=== PATIENT | female | born 1970 | race Caucasian/White ===

== ENCOUNTER 2016-04-16 17:42 | Inpatient (IN) | payer SELFPAY ==
[~2016-04-16] VITALS: Ht 165.1 cm; Wt 56.4 kg
[2016-04-16] VITALS (14 sets, daily range): BP systolic 110–139; BP diastolic 60–82; PULSE 92–105; RESP 12–15; TEMP 95.4–98.6; O2SAT 97–100
[2016-04-16] MEDS ORDERED: ETOMIDATE 20 MG/10 ML VIAL ONE (17:45)
[2016-04-16] MEDS ORDERED: SUCCINYLCHOLINE CHLORIDE 200 MG/10 ML VIAL ONE (17:46)
[2016-04-16] MEDS ORDERED: PROPOFOL 1000 MG/100 ML INJ 100 ML ONE (17:49)
[2016-04-16] MEDS ORDERED: SODIUM CHLORIDE 0.9% FLUSH 5 ML FLUSH IVF PRN (18:00)
[2016-04-16] MEDS ORDERED: ETOMIDATE 20 MG/10 ML VIAL IVP ONE (18:00)
[2016-04-16] MEDS ORDERED: SUCCINYLCHOLINE CHLORIDE 200 MG/10 ML VIAL IVP ONE (18:00)
[2016-04-16] MEDS ORDERED: SODIUM CHLOR 0.9% 1000 ML INJ 1,000 ML IV ONE ×2 (18:00)
--- NOTE | 2016-04-16 18:13 | PD ---
HPI Chief Complaint: Altered Mental Status Time Seen by Provider: 17:54 Travel History International Travel<30 days: No (UNABLE TO ASSESS) Contact w/Intl Traveler<30days: No (UNABLE TO ASSESS) Traveled to known affect area: No (UNABLE TO ASSESS) History of Present Illness HPI The patient was seen and examined in the presence of the nurse. This patient is brought in emergently in a state of unresponsiveness. She has GCS of 3. He is critically ill. She was found lying on the ground with 2 other people reportedly doing some illicit substances but unclear what. All 3 were found with GCS 3 lying on the ground. There is no evidence or suspicion of injury. She cannot provide any history or review of systems. [facility] Past Medical History LMP: UNK Social History Alcohol Use: Yes Tobacco Use: Yes Substance Use: Yes Allergies-Medications (Allergen,Severity, Reaction): Coded Allergies: UNOBTAINABLE (Unverified , 04/16/16) PT UNCONSCIOUS AND UNRESPONSIVE ON ARRIVAL TO EMERGENCY DEPT. Reported Meds & Prescriptions Reported Meds & Active Scripts Active Active Prescriptions or Reported Medications Unobtainable Review of Systems ROS Limitations: Clinical Condition, Unresponsive, Poor Historian Physical Exam Narrative GENERAL: Thin disheveled unresponsive well-developed patient SKIN: Warm and dry. HEAD: Atraumatic. Normocephalic. EYES: Pupils are 2.5 mm and equal and round. No scleral icterus. No injection or drainage. ENT: No nasal bleeding or discharge. Mucous membranes pink and moist. Teeth are clenched tight, unable to test gag but I doubt it is good NECK: Trachea midline. No JVD. CARDIOVASCULAR: Regular rate and rhythm. No murmur appreciated. RESPIRATORY: No accessory muscle use. Clear to auscultation. Breath sounds equal bilaterally. GASTROINTESTINAL: Abdomen soft, non-tender, nondistended. Hepatic and splenic margins not palpable. MUSCULOSKELETAL: No obvious deformities. No clubbing. No cyanosis. No edema. NEUROLOGICAL: GCS 3. No response to pain stimuli. Nonverbal. Impossible to accurately gauge motor strength or sensation given her lack of participation in the exam PSYCHIATRIC: Unable to test mood and affect; insight and judgment are nonexistent . Data Data Last Documented VS Vital Signs Date Time Temp Pulse Resp B/P Pulse Ox O2 Delivery O2 Flow Rate FiO2 04/16/16 18:25 100 14 110/60 100 Ventilator 04/16/16 17:59 15.00 04/16/16 17:50 95.4 04/16/16 17:50 50 Orders Etomidate Inj (Amidate Inj) (04/16/16 17:45) Succinylcholine Inj (Quelicin Inj) (04/16/16 17:46) Propofol 1000 Mg/100 Ml Inj (Diprivan 10 (04/16/16 17:49) Chest, Single Ap (04/16/16 17:56) Arterial Blood Gas (Abg) (04/16/16 17:56) Ecg Monitoring (04/16/16 17:56) Iv Access Insert/Monitor (04/16/16 17:56) Ng Gastric Tube Insert/Monitor (04/16/16 17:56) Urinary Catheter Insert/Apply (04/16/16 17:56) Oximetry (04/16/16 17:56) Oxygen Administration (04/16/16 17:56) Etomidate Inj (Amidate Inj) (04/16/16 18:00) Succinylcholine Inj (Quelicin Inj) (04/16/16 18:00) Sodium Chloride 0.9% Flush (Ns Flush) (04/16/16 18:00) Sodium Chlor 0.9% 1000 Ml Inj (Ns 1000 M (04/16/16 18:00) Sodium Chlor 0.9% 1000 Ml Inj (Ns 1000 M (04/16/16 18:00) Ct Brain W/O Iv Contrast(Rout) (04/16/16 ) Complete Blood Count With Diff (04/16/16 17:56) Comprehensive Metabolic Panel (04/16/16 17:56) Alcohol (Ethanol) (04/16/16 17:56) Drug Screen, Random Urine (04/16/16 17:56) Tylenol (Acetaminophen) (04/16/16 17:56) Salicylates (Aspirin) (04/16/16 17:56) Propofol 1000 Mg/100 Ml Inj (Diprivan 10 (04/16/16 18:00) ^ Infusion (04/16/16 18:00) RASS (04/16/16 18:00) Neurological Rass Scale SELENA.Q2H (04/16/16 18:00) Admit Order (Ed Use Only) (04/16/16 18:37) Labs Laboratory Tests Test 04/16/16 04/16/16 17:20 18:00 Blood Gas Puncture Site RT RADIAL Blood Gas Patient Temperature 98.6 Blood Gas HCO3 18 mmol/L Blood Gas Base Excess -8.7 mmol/L Blood Gas Oxygen Saturation 93 % Arterial Blood pH 7.20 Arterial Blood Partial 48 mmHg Pressure CO2 Arterial Blood Partial 425 mmHG Pressure O2 Arterial Blood Oxygen Content 17.9 Vol % Arterial Blood 5.0 % Carboxyhemoglobin Arterial Blood Methemoglobin 1.7 % Blood Gas Hemoglobin 12.9 G/DL Oxygen Delivery Device VENTILATOR Blood Gas Ventilator Setting PRVC/AC Blood Gas Inspired Oxygen 100 % Salicylates Level LESS THAN 1.7 MG/DL MDM Medical Decision Making Medical Screen Exam Complete: Yes Emergency Medical Condition: Yes Medical Record Reviewed: Yes Differential Diagnosis Overdose, intracranial hemorrhage, postictal state Narrative Course Patient is here as a Brooke Daniels. Unable to check for prior medical records. This patient is critically ill. INTUBATION: The patient was put in optimal position for the procedure. Rapid sequence intubation was initiated by me using 20 milligrams of etomidate IV and 80 milligrams of succinylcholine IV. The patient was intubated with a 80 cuffed endotracheal tube. Tube placement was confirmed by visualization of the tube and balloon passing through the cords, capnometry and subsequent chest x- ray. Breath sounds were equal and well aerated bilaterally postintubation. No breath sounds over stomach. Patient tolerated procedure well. After intubation her saturation is 100% on the ventilator. 3 IVs replaced I gave her 2 L normal saline IV bolus Initially hypotensive on scene at 80/50 but midway through fluid resuscitation her blood pressure now 115 systolic Given Dawkins and a G-tube and soft restraints Will initiate Diprivan drip when needed I reviewed her chest x-ray which shows good placement of endotracheal tube and OG tube with clear lungs Rest of the workup was ordered including urine and labs and aspirin and Tylenol levels Aspirin level is normal Rest of the workup will be checked I reviewed with guidance director Dr. Nieves who has already examined the patient will admit to intensive care Critical Care Narrative Aggregate critical care time was 80 minutes. Time to perform other separately billable procedures was not included in the critical care time. My time did not include minutes spent treating any other patients simultaneously or on activities that did not directly contribute to the patient's treatment. The services I provided to this patient were to treat and/or prevent clinically significant deterioration that could result in: Aspiration, loss of airway, hypoxemic brain injury, cardiopulmonary arrest I provided critical care services requiring my management, as noted below: Chart data review, documentation time, medication orders and management, vital sign assessments/reviewing monitor data, ordering and reviewing lab tests, ordering and interpreting/reviewing x-rays and diagnostic studies, care of the patient and discussion of the patient with the admitting physicians. Diagnosis Primary Impression: Unresponsive state Additional Impression: Overdose Qualified Code: T50.904A - Overdose, undetermined intent, initial encounter Admitting Information Admitting Physician Requests: Admit Scripts Unable to Obtain Active Prescriptions or Reported Meds Amari De La Cruz MD Apr 16, 2016 18:13
[2016-04-16 18:33] LABS: BLOOD GAS BASE EXCESS -8.7 mmol/L (-2-2); BLOOD GAS HCO3 18 mmol/L (22-26); BLOOD GAS METHEMOGLOBIN 1.7 % (0-2); BLOOD GAS O2 HGB SATURATION 93 % (90-100); BLOOD GAS OXYGEN CONTENT 17.9 Vol % (12.0-20.0); BLOOD GAS PCO2 48 mmHg (38-42); BLOOD GAS PO2 425 mmHG (61-120); BLOOD GAS TOTAL HGB 12.9 G/DL (12.0-16.0); CRITICAL VALUE YES; OXYGEN DEVICE VENTILATOR; TEMP CORR TO 98.6
[2016-04-16 18:34] LABS: DRAW SITE RT RADIAL; FIO2 100 %; NUMBER OF ARTERIAL PUNCTURES 1; STAT YES; ULNAR PULSE PRESENT; VENT SETTINGS PRVC/AC
[2016-04-16] MEDS: PROPOFOL 1000 MG/100 ML INJ 100 ML IV SCH (18:41)
[2016-04-16 18:43] LABS: ANION GAP 9 MEQ/L (5-15)
--- NOTE | 2016-04-16 18:44 | RADRPT ---
EXAM DATE/TIME: 04/16/2016 18:37 [facility] COMPARISON: No previous studies available for comparison. INDICATIONS : Post intubation. MEDICAL HISTORY : None. SURGICAL HISTORY : None. ENCOUNTER: Initial ACUITY: 1 day PAIN SCORE: Non-responsive. LOCATION: Bilateral chest FINDINGS: Endotracheal tube, nasogastric tube are both present in good position. lungs are symmetrically aerate d and grossly clear without definite evidence of hemothorax or pneumothorax. For slight rotation, car diomediastinal contour is satisfactory. Thoracic skeleton is grossly intact. CONCLUSION: Satisfactory chest appearance Steve Westbrook MD on April 16, 2016 at 18:41 Board Certified Radiologist. This report was verified electronically.
[2016-04-16 18:46] LABS: ALKALINE PHOSPHATASE 74 U/L (45-117); ALT (GPT) 42 U/L (10-53); AST (GOT) 75 U/L (15-37); BICARBONATE 19.3 MEQ/L (21.0-32.0); BLOOD UREA NITROGEN 8 MG/DL (7-18); CHLORIDE 110 MEQ/L (98-107); GLOMERULAR FILTRATION RATE 88 ML/MIN (>89); POTASSIUM 6.5 MEQ/L (3.5-5.1); SODIUM (NA) 138 MEQ/L (136-145); TOTAL BILIRUBIN ADULT 0.2 MG/DL (0.2-1.0)
[2016-04-16 18:50] LABS: ACETAMINOPHEN LESS THAN 2.0 MCG/ML (10.0-30.0)
[2016-04-16] MEDS ORDERED: DEXTROSE 10% INJ 1,000 ML IV SCH (19:03)
[2016-04-16] MEDS ORDERED: SODIUM CHLORIDE 0.9% FLUSH 5 ML FLUSH IV FLUSH PRN (19:15)
[2016-04-16] MEDS ORDERED: MAGNESIUM SULFATE INJ 2 GM in SODIUM CHLORIDE 0.9% INJ 96 ML IV PRN (19:15)
[2016-04-16] MEDS ORDERED: POTASSIUM PHOSPHATE MONOBASIC 500 MG TAB PO/TUBE PRN (19:15)
[2016-04-16] MEDS ORDERED: SODIUM PHOSPHATE INJ 30 MMOL in SODIUM CHLOR 0.9% 250 ML INJ 240 ML IV PRN (19:15)
[2016-04-16] MEDS ORDERED: DEXTROSE 50% IN WATER 50 ML VIAL(D50) IV PUSH PRN (19:15)
[2016-04-16] MEDS ORDERED: DEXTROSE 50% IN WATER 50 ML SYRINGE IV ONE (19:15)
[2016-04-16] MEDS ORDERED: INSULIN HUMAN REGULAR 1,000 UNITS/10 ML VIAL IVP ONE (19:15)
[2016-04-16] MEDS ORDERED: POTASSIUM CHLOR 40 MEQ PREMIX 100 ML IV PRN ×2 (19:15)
[2016-04-16] MEDS ORDERED: POTASSIUM CHLOR 20 MEQ PREMIX 100 ML IV PRN ×2 (19:15)
[2016-04-16] MEDS ORDERED: POTASSIUM PHOSPHATE INJ 30 MMOL in SODIUM CHLOR 0.9% 250 ML INJ 250 ML IV PRN (19:15)
[2016-04-16] MEDS ORDERED: POTASSIUM CL 40 MEQ/30 ML LIQ UDC PO/TUBE PRN ×2 (19:15)
[2016-04-16] MEDS ORDERED: MISCELLANEOUS NURSING INFORMATION XX SCH (19:15)
[2016-04-16] MEDS ORDERED: RESP: ALBUTEROL 2.5 MG/IPRATROPIUM 0.5 MG NEB (PRN) INH (19:15)
[2016-04-16] MEDS ORDERED: CALCIUM CHLORIDE 10% SOLN 1 GRAM/10 ML SYR IV PUSH ONE (19:15)
[2016-04-16] MEDS ORDERED: PROPOFOL 1000 MG/100 ML INJ 100 ML IV SCH (19:15)
[2016-04-16] MEDS ORDERED: SODIUM POLYSTYRENE SULFONATE SUSP 15 GM/60 ML CUP PO ONE (19:15)
[2016-04-16] MEDS ORDERED: POTASSIUM PHOSPHATE MONOBASIC 500 MG TAB PO PRN (19:15)
[2016-04-16] MEDS ORDERED: MAGNESIUM OXIDE 400 MG TAB PO PRN (19:15)
[2016-04-16] MEDS ORDERED: MAGNESIUM SULFATE INJ 4 GM in SODIUM CHLORIDE 0.9% INJ 92 ML IV PRN (19:15)
[2016-04-16] MEDS ORDERED: CHLORHEXIDINE GLUCONATE 2 % 1 PACK (2 CLOTHS) TOP PRN (19:15)
[2016-04-16 19:48] LABS: AUTOMATED NEUTROPHIL # 4.9 TH/MM3 (1.8-7.7); BASOPHIL % 0.7 % (0.0-2.0); HEMATOCRIT 43.1 % (35.0-46.0); LYMPH % 11.1 % (9.0-44.0); LYMPHOCYTE # 0.7 TH/MM3 (1.0-4.8); MEAN CELL VOLUME 94.6 FL (80.0-100.0); MEAN CORPUSCULAR HEMOGLOBIN 31.2 PG (27.0-34.0); MONO % 5.8 % (0.0-8.0); NEUT % 82.4 % (16.0-70.0); PLATELET COUNT 133 TH/MM3 (150-450); RED BLOOD COUNT 4.55 MIL/MM3 (4.00-5.30); RED CELL DISTRIBUTION WIDTH 17.7 % (11.6-17.2); WHITE BLOOD COUNT 5.9 TH/MM3 (4.0-11.0)
[2016-04-16 19:51] LABS: HEMO FLAGS DIFF FINAL
--- NOTE | 2016-04-16 19:51 | HHI.HP ---
[facility] Service Critical Care Medicine Primary Care Physician Unknown Admission Diagnosis unresponsive, OD Diagnosis: Chief Complaint: altered mental status Travel History International Travel<30 Days: No (UNABLE TO ASSESS) Contact w/Intl Traveler <30 Da: No (UNABLE TO ASSESS) Traveled to Known Affected Are: No (UNABLE TO ASSESS) History of Present Illness This is a young female who was found unresponsive after reportedly smoking K2. EMS brought the patient in with a GCS of 3, with active bag valve mask support his respirations. There is visible signs of emesis and probable aspiration at the scene. Patient was emergently intubated in the emergency department. Nothing else is known about the patient, and he is unable to tell us any past medical history given his current clinical status. Critical care medicine was consulted to evaluate and manage his altered mental status and presumed toxic encephalopathy, drug overdose. Review of Systems ROS Limitations: Clinical Condition, Intoxication, Intubated, Altered Mental Status, Unresponsive Past Family Social History Allergies: Coded Allergies: UNOBTAINABLE (Unverified , 04/16/16) PT UNCONSCIOUS AND UNRESPONSIVE ON ARRIVAL TO EMERGENCY DEPT. Past Medical History Unknown secondary to clinical condition of patient Past Surgical History Unknown secondary to clinical condition of patient Reported Medications Unknown secondary to clinical condition of patient Active Ordered Medications See MAR Family History Unknown secondary to clinical condition of patient Social History Unknown secondary to clinical condition of patient Physical Exam Vital Signs Vital Signs Date Time Temp Pulse Resp B/P Pulse Ox O2 Delivery O2 Flow Rate FiO2 04/16/16 19:07 40 04/16/16 18:45 95.4 04/16/16 18:40 100 14 129/73 100 Ventilator 04/16/16 18:25 100 14 110/60 100 Ventilator 04/16/16 18:00 102 14 122/72 100 Ventilator 04/16/16 17:59 98 Nasal Cannula 15.00 04/16/16 17:50 95.4 96 12 119/82 100 Non-Rebreather 04/16/16 17:50 97 12 98 Non-Rebreather 04/16/16 17:50 50 04/16/16 17:42 98 Non-Rebreather 04/16/16 17:42 95.4 96 12 119/82 97 04/16/16 15:50 100 50 Physical Exam GENERAL: Middle-aged female, lying in bed, intubated, sedated. Critically ill HEENT: Normocephalic. Atraumatic. Pupils pinpoint, equal, round, conjugate. Mucous members are dry. NECK: Trachea is midline. No JVD. CHEST: Equal chest rise. Clear to auscultation. Intubated. CARDIOVASCULAR: Normal rate, regular rhythm. S1 and S2 without appreciable murmurs. ABDOMEN: Soft, nontender, nondistended. No guarding. MUSCULOSKELETAL: No peripheral edema. Distal pulses 2+. NEUROLOGICAL: RASS -5. GCS 3. Laboratory Laboratory Tests Test 04/16/16 04/16/16 17:20 18:00 Blood Gas Puncture Site RT RADIAL Blood Gas Patient Temperature 98.6 Blood Gas HCO3 18 Blood Gas Base Excess -8.7 Blood Gas Oxygen Saturation 93 Arterial Blood pH 7.20 Arterial Blood Partial 48 Pressure CO2 Arterial Blood Partial 425 Pressure O2 Arterial Blood Oxygen Content 17.9 Arterial Blood 5.0 Carboxyhemoglobin Arterial Blood Methemoglobin 1.7 Blood Gas Hemoglobin 12.9 Oxygen Delivery Device VENTILATOR Blood Gas Ventilator Setting PRVC/AC Blood Gas Inspired Oxygen 100 Sodium Level 138 Potassium Level 6.5 Chloride Level 110 Carbon Dioxide Level 19.3 Anion Gap 9 Blood Urea Nitrogen 8 Creatinine 0.59 Estimat Glomerular Filtration 88 Rate Random Glucose 99 Calcium Level 7.6 Total Bilirubin 0.2 Aspartate Amino Transf 75 (AST/SGOT) Alanine Aminotransferase 42 (ALT/SGPT) Alkaline Phosphatase 74 Total Protein 7.8 Albumin 3.2 Salicylates Level LESS THAN 1.7 Acetaminophen Level LESS THAN 2.0 Ethyl Alcohol Level 266 Result Diagram: 04/16/16 1800 Assessment and Plan Assessment and Plan Assessment: This is a young female who was brought in by EMS in respiratory arrest with active [id number] reportedly secondary to an overdose of K2. She is intubated and very critically ill. Plan by systems: Neurologic: Toxic encephalopathy Alcohol abuse K2 abuse RASS goal -2 Propofol for goal RASS We'll follow-up urine drug screen Follow-up Tylenol level, aspirin level, ethanol level 500 mg IV daily Daily multivitamin Respiratory: Acute hypoxic and hypercarbic respiratory failure Intubated and sedated. Vent bundle Head of bed 30 Wean FiO2 for goal SPO2 greater than 92% Low tidal volume ventilation targeting 6 cc/kg ideal body weight Does not SBT criteria today given altered mental status Stat ABG and a.m. ABG A.m. chest x-ray Nebs every 6 and every 2 when necessary Cardiovascular: Sinus tachycardia Possible hypovolemic shock Continue telemetry Stat EKG Stat lactic acid and serial lactate at midnight Renal: Possible rhabdomyolysis Place Dawkins for accurate I's and O's. Every hour urine outputs -- Strict I/Os Stat CK and follow-up CK at midnight FEN/GI: Acute protein calorie malnutritionmild Acute Intravascular hypovolemia Metabolic acidosis Severe life-threatening hyperkalemia Nothing by mouth ICU electric protocol 2 L normal saline IV bolus Maintenance fluids: Lactated Ringer's at 200 cc an hour D10 at 30 cc an hour for dextrose source Stat BMP, LFTs Daily BMP --insulin 10 units iv, d50 1/2 amp, calcium chloride, kayexalate for serum K 6.5. Heme/ID: Leukocytosis Probable aspiration pneumonitis Stat CBC, coags Daily CBC No infectious etiology suspected this time. If the patient spikes a fever after 48 hours we will cover her with antibiotics for presumed aspiration pneumonia. Endocrine: Hyperglycemia of critical illness -- SSI, medium scale, every 6 hours D10 at 30 cc an hour to prevent hypoglycemia. Prophylaxis: GI Prophylaxis Protonix 40 g IV every 24 hours: Anticipated mechanical ventilation of greater than 48 hours duration DVT Prophylaxis -- SCDs Subcutaneous heparin 5000 every 8 Lines: Peripheral IVs. We will maintain 2 large for peripheral IVs at all time. Dawkins Dispo: admit the patient to the ICU. She is very critically ill this time. This patient remains critically ill with one or more organ systems which are or may become a threat to life. I have spent in excess of 35 minutes discontinuously in the care and management of this patient. This time is exclusive of procedures, and includes, but is not limited to, evaluation of the patient, review of the medical record, discussions with family, consultants, nursing staff, or respiratory therapy, and documentation in the medical record. Code Status Full code Richy Wilde MD Apr 16, 2016 19:51
[2016-04-16 19:54] LABS: BACTERIA, URINE MANY /hpf; BLOOD, URINE NEG (NEG); COMMENT (UR) CATH-CULTURE IND; CULTURE IF INDICATED CATH CULTURE IND; GLUCOSE,URINE NEG (NEG); KETONE, URINE NEG (NEG); NITRITE,URINE POS (NEG); URINE COLOR YELLOW (YELLW/STRAW)
[2016-04-16] MEDS ORDERED: ONDANSETRON HCL 4 MG/2 ML VIAL IV PRN (20:00)
[2016-04-16 20:26] LABS: AMPHETAMINE, URINE NEG (NEG); BARBITURATES, URINE NEG (NEG); COCAINE, URINE NEG (NEG)
[2016-04-16] MEDS: LACTATED RINGER'S 1000 ML INJ 1,000 ML IV SCH (20:26)
[2016-04-16] MEDS: RESP: ALBUTEROL 2.5 MG/IPRATROPIUM 0.5 MG NEB (SCH) INH (20:42)
[2016-04-16] MEDS: SODIUM CHLORIDE 0.9% FLUSH 5 ML FLUSH IV FLUSH SCH (21:00)
[2016-04-16] MEDS: DOCUSATE SODIUM 50 MG/SENNA 8.6 MG TAB PO SCH (21:00)
[2016-04-16] MEDS: POLYETHYLENE GLYCOL 17 GM PKG PO SCH (21:00)
[2016-04-16 23:25] LABS: BLOOD GAS BASE EXCESS -5.8 mmol/L (-2-2); BLOOD GAS CARBOXYHEMOGLOBIN 3.5 % (0-4); BLOOD GAS HCO3 19 mmol/L (22-26); BLOOD GAS METHEMOGLOBIN 2.1 % (0-2); BLOOD GAS O2 HGB SATURATION 93 % (90-100); BLOOD GAS OXYGEN CONTENT 16.4 Vol % (12.0-20.0); BLOOD GAS PCO2 38 mmHg (38-42); BLOOD GAS PO2 116 mmHG (61-120); BLOOD GAS TOTAL HGB 12.4 G/DL (12.0-16.0); CRITICAL VALUE NO; DRAW SITE RT FEMORAL; FIO2 35 %; NUMBER OF ARTERIAL PUNCTURES 1; OXYGEN DEVICE VENTILATOR; STAT NO; TEMP CORR TO 98.6; VENT SETTINGS AC15/500 5 PEEP
[2016-04-16] MEDS: INSULIN NovoLIN REGULAR SUPPLEMENTAL SCALE SQ SCH (23:47)
[2016-04-17] VITALS (16 sets, daily range): BP systolic 103–151; BP diastolic 56–94; PULSE 72–110; RESP 14–24; TEMP 97.7–99; O2SAT 95–100
--- NOTE | 2016-04-17 01:18 | RADRPT ---
EXAM DATE/TIME: 04/17/2016 00:48 [facility] COMPARISON: No previous studies available for comparison. INDICATIONS : Found unresponsive. RADIATION DOSE: 56.35 CTDIvol (mGy) MEDICAL HISTORY : Non-responsive. SURGICAL HISTORY : Non-responsive. ENCOUNTER: Initial ACUITY: 1 day PAIN SCALE: Non-responsive LOCATION: cranial TECHNIQUE: Multiple contiguous axial images were obtained of the head. Using automated exposure control and adj ustment of the mA and/or kV according to patient size, radiation dose was kept as low as reasonably a chievable to obtain optimal diagnostic quality images. FINDINGS: CEREBRUM: The ventricles are normal for age. No evidence of midline shift, mass lesion, hemorrhage or acute in farction. No extra-axial fluid collections are seen. POSTERIOR FOSSA: The cerebellum and brainstem are intact. The 4th ventricle is midline. The cerebellopontine angle i s unremarkable. EXTRACRANIAL: The visualized portion of the orbits is intact. Mucosal thickening is seen involving ethmoid air cell s and maxillary sinuses bilaterally. No air-fluid levels. SKULL: The calvaria is intact. No evidence of skull fracture. CONCLUSION: 1. No acute intracranial abnormality. 2. Chronic paranasal sinus disease. Nilay Nieves Jr., MD on April 17, 2016 at 1:15 Board Certified Radiologist. This report was verified electronically.
[2016-04-17] MEDS: LACTATED RINGER'S 1000 ML INJ 1,000 ML IV SCH ×3 (01:33→12:10)
[2016-04-17] MEDS: PROPOFOL 1000 MG/100 ML INJ 100 ML IV SCH (01:33)
[2016-04-17 02:13] LABS: BICARBONATE 21.2 MEQ/L (21.0-32.0); POTASSIUM 4.4 MEQ/L (3.5-5.1)
[2016-04-17] MEDS: CHLORHEXIDINE GLUCONATE 2 % 1 PACK (2 CLOTHS) TOP SCH ×2 (03:47→21:49)
--- NOTE | 2016-04-17 04:40 | RADRPT ---
EXAM DATE/TIME: 04/17/2016 03:15 [facility] COMPARISON: CHEST SINGLE AP, April 16, 2016, 18:37. INDICATIONS : Shortness of breath. MEDICAL HISTORY : Non-responsive SURGICAL HISTORY : Non-responsive ENCOUNTER: Subsequent ACUITY: 2 days PAIN SCORE: Non-responsive. LOCATION: Bilateral chest FINDINGS: A single view of the chest demonstrates the lungs to be symmetrically aerated without evidence of mas s, infiltrate or effusion. The cardiomediastinal contours are unremarkable. Osseous structures are intact. Tip of the endotracheal tube 2 cm proximal to lindsey. Nasogastric tube courses off the inferi or margin of the film. CONCLUSION: Clear lungs. Nilay Nieves Jr., MD on April 17, 2016 at 4:38 Board Certified Radiologist. This report was verified electronically.
[2016-04-17] MEDS: RESP: ALBUTEROL 2.5 MG/IPRATROPIUM 0.5 MG NEB (SCH) INH ×2 (05:06→07:26)
[2016-04-17] MEDS: INSULIN NovoLIN REGULAR SUPPLEMENTAL SCALE SQ SCH ×4 (05:26→21:00)
[2016-04-17] MEDS: HEPARIN SODIUM - SQ 10,000 UNITS/ML VIAL SQ SCH ×3 (05:27→21:48)
[2016-04-17 05:33] LABS: HEMATOCRIT 42.6 % (35.0-46.0); PLATELET COUNT 110 TH/MM3 (150-450); RED BLOOD COUNT 4.53 MIL/MM3 (4.00-5.30); RED CELL DISTRIBUTION WIDTH 17.4 % (11.6-17.2); WHITE BLOOD COUNT 8.7 TH/MM3 (4.0-11.0)
[2016-04-17 05:39] LABS: REVIEW FLAG FINAL
[2016-04-17] MEDS ORDERED: HALOPERIDOL LACTATE 5 MG/ML AMP IV PRN (07:45)
[2016-04-17] MEDS ORDERED: DEXMEDETOMIDINE INJ 50 ML IV SCH (08:00)
[2016-04-17] MEDS: QUEtiapine FUMARATE 100 MG TAB PO SCH ×2 (08:35→13:12)
[2016-04-17] MEDS: CHLORHEXIDINE 0.12% (ORAL KIT) 15 ML CUP MT SCH ×2 (08:36→20:00)
[2016-04-17] MEDS ORDERED: PANTOPRAZOLE SODIUM 40 MG VIAL IV SCH (09:00)
[2016-04-17] MEDS: SODIUM CHLORIDE 0.9% FLUSH 5 ML FLUSH IV FLUSH SCH ×2 (09:00→21:48)
[2016-04-17] MEDS: POLYETHYLENE GLYCOL 17 GM PKG PO SCH ×2 (09:52→21:00)
[2016-04-17] MEDS: DOCUSATE SODIUM 50 MG/SENNA 8.6 MG TAB PO SCH ×2 (09:52→21:49)
--- NOTE | 2016-04-17 10:42 | HHI.CCPN ---
Subjective Remarks/Hospital Course Hospital Course: This is a young female who was found unresponsive after reportedly smoking K2. EMS brought the patient in with a GCS of 3, with active bag valve mask support his respirations. There is visible signs of emesis and probable aspiration at the scene. Patient was emergently intubated in the emergency department. Nothing else is known about the patient, and he is unable to tell us any past medical history given his current clinical status. Critical care medicine was consulted to evaluate and manage his altered mental status and presumed toxic encephalopathy, drug overdose. Subjective: 04/17: somnolent this AM on propofol sedation. serum K improved overnight with kayexalate, insulin/d50, calcium. uop is adequate. Objective Vital Signs Date Time Temp Pulse Resp B/P Pulse Ox O2 Delivery O2 Flow Rate FiO2 04/17/16 10:15 100 Nasal Cannula 2 04/17/16 07:40 35 04/17/16 06:00 87 04/17/16 04:00 98.4 15 116/71 Intake and Output 04/16/16 04/16/16 04/17/16 08:00 16:00 00:00 Output Total 800 ml Balance -800 ml Result Diagram: 04/17/16 0340 04/17/16 0123 Other Results Laboratory Tests Test 04/16/16 04/16/16 17:20 22:00 Blood Gas Puncture Site RT RADIAL RT FEMORAL Blood Gas Patient Temperature 98.6 98.6 Blood Gas HCO3 18 mmol/L 19 mmol/L (22-26) (22-26) Blood Gas Base Excess -8.7 mmol/L -5.8 mmol/L (-2-2) (-2-2) Blood Gas Oxygen Saturation 93 % (90-100) 93 % (90-100) Arterial Blood pH 7.20 7.33 (7.380-7.420) (7.380-7.420) Arterial Blood Partial 48 mmHg (38-42) 38 mmHg (38-42) Pressure CO2 Arterial Blood Partial 425 mmHG 116 mmHG Pressure O2 (61-120) (61-120) Arterial Blood Oxygen Content 17.9 Vol % 16.4 Vol % (12.0-20.0) (12.0-20.0) Arterial Blood 5.0 % (0-4) 3.5 % (0-4) Carboxyhemoglobin Arterial Blood Methemoglobin 1.7 % (0-2) 2.1 % (0-2) Blood Gas Hemoglobin 12.9 G/DL 12.4 G/DL (12.0-16.0) (12.0-16.0) Oxygen Delivery Device VENTILATOR VENTILATOR Blood Gas Ventilator Setting [facility]/ AC15/500 5 PEEP Blood Gas Inspired Oxygen 100 % 35 % Objective Remarks GENERAL: Middle-aged female, lying in bed, intubated, sedated. HEENT: Normocephalic. Atraumatic. Pupils pinpoint, equal, round, conjugate. Mucous members moist. NECK: Trachea is midline. No JVD. CHEST: Equal chest rise. Clear to auscultation. Intubated. CARDIOVASCULAR: Normal rate, regular rhythm. S1 and S2 without appreciable murmurs. ABDOMEN: Soft, nontender, nondistended. No guarding. MUSCULOSKELETAL: No peripheral edema. Distal pulses 2+. NEUROLOGICAL: RASS -3. briskly purposeful. does not follow commands. A/P Assessment and Plan Assessment: This is a young female who was brought in by EMS in respiratory arrest with active [id number] reportedly secondary to an overdose of K2. She remains intubated, although improving. we need her mental status to improve to move towards extubation. Plan by systems: Neurologic: Toxic encephalopathy Alcohol abuse K2 abuse RASS goal 0 will transition from propofol to precedex for our RASS goal and attempt to wean sedation to move towards extubation. Thiamine 100 mg IV daily Daily multivitamin Respiratory: Acute hypoxic and hypercarbic respiratory failure- resolving. Intubated and sedated. Vent bundle Head of bed 30 Wean FiO2 for goal SPO2 greater than 92% --SBT today. if she passes, will move forward with extubation. Nebs every 6 and every 2 when necessary Cardiovascular: Sinus tachycardia- resolved. Possible hypovolemic shock- resolved. Continue telemetry lactate stabilized. Renal: Possible rhabdomyolysis-resolved. continue martin this morning, if she continues to improve, we will move towards martin catheter removal. Every hour urine outputs -- Strict I/Os FEN/GI: Acute protein calorie malnutritionmild Acute Intravascular hypovolemia- resolving. Metabolic acidosis- resolved. Severe life-threatening hyperkalemia- resolved. Nothing by mouth --If she extubates today, we will pursue nursing bedside swallow evaluation and advance her diet. ICU electric protocol Maintenance fluids: Lactated Ringer's at 200 cc an hour Daily BMP Heme/ID: Probable aspiration pneumonitis Daily CBC No infectious etiology suspected this time. If the patient spikes a fever after 48 hours we will cover her with antibiotics for presumed aspiration pneumonia. Endocrine: Hyperglycemia of critical illness -- SSI, medium scale, every 6 hours D10 at 30 cc an hour to prevent hypoglycemia. Prophylaxis: GI Prophylaxis Protonix 40 g IV every 24 hours: Anticipated mechanical ventilation of greater than 48 hours duration. If she extubates today, we will discontinue this. DVT Prophylaxis -- SCDs Subcutaneous heparin 5000 every 8 Lines: Peripheral IVs. Martin Dispo: remain in the ICU. If she extubates today, will consider transfer out of the ICU late today or early tomorrow. Richy Wilde MD Apr 17, 2016 10:42
[2016-04-17] MEDS ORDERED: ACETAMINOPHEN 325 MG TAB PO PRN (10:45)
[2016-04-17] MEDS ORDERED: HYDROmorphone HCL PF 1 MG/ML VIAL IV PUSH PRN (10:45)
--- NOTE | 2016-04-17 11:27 | EKG ---
Date Performed: 04/16/2016 Time Performed: 22:01:02 PTAGE: 89 years EKG: Sinus rhythm NORMAL ECG NO PREVIOUS TRACING DOCTOR: Ivan Keenan Interpretating Date/Time 04/17/2016 11:25:16
[2016-04-17] MEDS ORDERED: DEXTROSE 50% IN WATER 50 ML VIAL(D50) IV PUSH PRN (15:15)
[2016-04-17] MEDS ORDERED: NICOTINE 14 MG/24 HR PATCH TD SCH (23:00)
[2016-04-18] VITALS: BP 108/60; PULSE 75; RESP 20; TEMP 99.2; O2SAT 95
[2016-04-18] MEDS: INSULIN NovoLIN REGULAR SUPPLEMENTAL SCALE SQ SCH ×5 (03:00→21:00)
[2016-04-18 04:00] VITALS: BP 134/71; PULSE 72; RESP 20; TEMP 98.3; O2SAT 95
[2016-04-18 04:01] LABS: HEMATOCRIT 36.3 % (35.0-46.0); MEAN CELL VOLUME 92.4 FL (80.0-100.0); MEAN CORPUSCULAR HEMOGLOBIN 30.7 PG (27.0-34.0); MEAN CORPUSCULAR HGB CONC 33.2 % (32.0-36.0); PLATELET COUNT 108 TH/MM3 (150-450); RED BLOOD COUNT 3.93 MIL/MM3 (4.00-5.30); RED CELL DISTRIBUTION WIDTH 16.7 % (11.6-17.2); REVIEW FLAG FINAL; WHITE BLOOD COUNT 6.7 TH/MM3 (4.0-11.0)
[2016-04-18 04:48] LABS: BICARBONATE 24.9 MEQ/L (21.0-32.0); POTASSIUM 3.6 MEQ/L (3.5-5.1)
[2016-04-18] MEDS: HEPARIN SODIUM - SQ 10,000 UNITS/ML VIAL SQ SCH ×3 (06:17→21:24)
[2016-04-18 08:00] VITALS: BP 143/85; PULSE 67; PULSE 77; RESP 18; TEMP 98.1; O2SAT 94
[2016-04-18] MEDS: POLYETHYLENE GLYCOL 17 GM PKG PO SCH ×2 (08:57→21:00)
[2016-04-18] MEDS: SODIUM CHLORIDE 0.9% FLUSH 5 ML FLUSH IV FLUSH SCH ×2 (08:57→21:00)
[2016-04-18] MEDS: DOCUSATE SODIUM 50 MG/SENNA 8.6 MG TAB PO SCH ×2 (08:57→21:00)
[2016-04-18 12:00] VITALS: BP 106/71; PULSE 82; PULSE 94; RESP 18; TEMP 98.5; O2SAT 97
[2016-04-18 16:00] VITALS: BP 126/76; PULSE 74; PULSE 99; RESP 19; TEMP 98.3; O2SAT 93
--- NOTE | 2016-04-18 19:17 | HHI.PR ---
Subjective Remarks Patient states that she has no complaints chest pain shortness of breath. She has gotten up and ambulated. She denies any active suicidal ideations. She admits to history of drug abuse. She understands her risk and consequences of continued drug abuse. She states that she wants to be released and discharged home today. Objective Vitals Vital Signs Date Time Temp Pulse Resp B/P Pulse Ox O2 Delivery O2 Flow Rate FiO2 04/18/16 16:00 74 04/18/16 12:00 82 04/18/16 12:00 98.5 94 18 106/71 97 04/18/16 08:00 98.1 67 18 143/85 94 04/18/16 08:00 77 04/18/16 04:00 98.3 72 20 134/71 95 04/18/16 04:00 72 04/18/16 00:00 99.2 75 20 108/60 95 04/18/16 00:00 75 04/17/16 20:15 97 21 04/17/16 20:00 79 04/17/16 20:00 98.7 79 18 103/56 98 I/O 04/17/16 04/17/16 04/17/16 04/18/16 04/18/16 04/18/16 07:00 15:00 23:00 07:00 15:00 23:00 Intake Total 2205 ml 1843 ml 420 ml 100 ml 0 ml Output Total 250 ml 600 ml 400 ml 600 ml Balance 1955 ml 1243 ml 20 ml -500 ml 0 ml Intake Oral 420 ml 420 ml 100 ml IV Total 2205 ml 1423 ml 0 ml Output Urine Total 250 ml 600 ml 400 ml 600 ml Stool Total 0 ml # Voids 2 2 3 # Bowel Movements 1 1 Result Diagram: 04/18/16 0332 04/18/16 0332 Other Results Microbiology Date/Time Procedure Status Source Growth 04/16/16 20:38 Aerobic Blood Culture - Preliminary Resulted Blood Peripheral NO GROWTH IN 2 DAYS 04/16/16 20:38 Anaerobic Blood Culture - Preliminary Resulted Blood Peripheral NO GROWTH IN 2 DAYS 04/16/16 19:30 Urine Culture - Final Complete Urine Catheterized Urine Klebsiella Pneumoniae Objective Remarks GENERAL: This is a well-nourished, well-developed patient, in no apparent distress. CARDIOVASCULAR: Regular rate and rhythm RESPIRATORY: Clear to auscultation. Breath sounds equal bilaterally. No wheezes , rales, or rhonchi. GASTROINTESTINAL: Abdomen soft, non-tender, nondistended. Normal active bowel sounds MUSCULOSKELETAL: Extremities without clubbing, cyanosis, or edema. NEURO: Alert & Oriented x4 to person, place, time, situation. Moves all ext x4 A/P Problem List: (1) Toxic encephalopathy ICD Code: G92 Status: Acute (2) UTI due to Klebsiella species ICD Code: N39.0 Status: Acute (3) Overdose ICD Code: T50.901A Status: Acute Assessment and Plan Toxic encephalopathy due to Alcohol abuse and K2 abuse -now mental status has improved. Thiamine 100 mg IV daily and when changed to by mouth Daily multivitamin Acute hypoxic and hypercarbic respiratory failure- resolved and now extubated. Nebs every 6 and every 2 when necessary Sinus tachycardia- resolved. Severe life-threatening hyperkalemia- resolved. Probable aspiration pneumonitis Daily CBC, patient seems stable for respiratory status. Patient will be given prescription for Cipro to cover for both UTI and possible aspiration pneumonitis Urinary tract infection, klebsiellacontinue Cipro. GI Prophylaxis Protonix 40 g IV every 24 hours, which we will discontinue today as patient has been extubated. DVT Prophylaxis -- SCDs Subcutaneous heparin 5000 every 8 Lines: Peripheral IVs. [facility] discontinued Discharge Planning Discharge patient home today. Problem Qualifiers (1) Overdose: Qualified Code: T50.904A - Overdose, undetermined intent, initial encounter Dora Hilario MD Apr 18, 2016 19:17
[2016-04-18 19:35] VITALS: O2SAT 95
--- NOTE | 2016-04-18 19:54 | HHI.DCPOC ---
Discharge Care Plan Diagnosis: (1) Overdose (2) UTI due to Klebsiella species Goals to Promote Your Health * To prevent worsening of your condition and complications * To maintain your health at the optimal level Directions to Meet Your Goals Take your medications as prescribed Follow your dietary instruction Follow activity as directed Keep your appointments as scheduled Take your immunizations and boosters as scheduled If your symptoms worsen call your PCP, if no PCP go to Urgent Care Center or Emergency Room Smoking is Dangerous to Your Health. Avoid second hand smoke Call the 24-hour hour crisis hotline for domestic abuse at Dora Hilario MD Apr 18, 2016 19:54
[2016-04-18] MEDS ORDERED: CIPR500T2 PO (19:56)
[2016-04-18] MEDS: CHLORHEXIDINE 0.12% (ORAL KIT) 15 ML CUP MT SCH (20:00)
--- NOTE | 2016-04-18 20:01 | HHI.DS ---
Discharge Summary Admission Date Apr 16, 2016 at 18:39 Discharge Date: Apr 18, 2016 Admitting Diagnosis unresponsive, OD (1) Toxic encephalopathy ICD Code: G92 Diagnosis: Principal (2) Overdose ICD Code: T50.901A Diagnosis: Principal (3) UTI due to Klebsiella species ICD Code: N39.0 Diagnosis: Secondary Procedures 04/16 Intubation with mechanical ventilation Brief History - From Admission This is a young female who was found unresponsive after reportedly smoking K2. EMS brought the patient in with a GCS of 3, with active bag valve mask support his respirations. There is visible signs of emesis and probable aspiration at the scene. Patient was emergently intubated in the emergency department. Nothing else is known about the patient, and he is unable to tell us any past medical history given his current clinical status. Critical care medicine was consulted to evaluate her altered mental status and presumed toxic encephalopathy, drug overdose. CBC/BMP: 04/18/16 0332 04/18/16 0332 Significant Findings Laboratory Tests Test 04/16/16 04/16/16 04/16/16 04/16/16 17:20 18:00 19:30 22:00 Blood Gas HCO3 18 mmol/L 19 mmol/L (22-26) (22-26) Blood Gas Base Excess -8.7 mmol/L -5.8 mmol/L (-2-2) (-2-2) Arterial Blood pH 7.20 7.33 (7.380-7.420) (7.380-7.420) Arterial Blood Partial 48 mmHg (38-42) Pressure CO2 Arterial Blood Partial 425 mmHG Pressure O2 (61-120) Arterial Blood 5.0 % (0-4) Carboxyhemoglobin Potassium Level 6.5 MEQ/L (3.5-5.1) Chloride Level 110 MEQ/L (98-107) Carbon Dioxide Level 19.3 MEQ/L (21.0-32.0) Estimat Glomerular Filtration 88 ML/MIN (>89) Rate Calcium Level 7.6 MG/DL (8.5-10.1) Aspartate Amino Transf 75 U/L (15-37) (AST/SGOT) Albumin 3.2 GM/DL (3.4-5.0) Salicylates Level LESS THAN 1.7 MG/DL (2.8-20.0) Acetaminophen Level LESS THAN 2.0 MCG/ML (10.0-30.0) Ethyl Alcohol Level 266 MG/DL (0-5) Red Cell Distribution Width 17.7 % (11.6-17.2) Platelet Count 133 TH/MM3 (150-450) Neutrophils (%) (Auto) 82.4 % (16.0-70.0) Lymphocytes # (Auto) 0.7 TH/MM3 (1.0-4.8) Urine Benzodiazepines Screen POS (NEG) Urine Turbidity CLOUDY (CLEAR) Urine Nitrite POS (NEG) Urine RBC 5 /hpf (0-3) Urine WBC 37 /hpf (0-5) Urine Bacteria MANY /hpf (NONE) Arterial Blood Methemoglobin 2.1 % (0-2) Test 04/16/16 04/17/16 04/17/16 04/18/16 23:41 01:23 03:40 03:32 Lactic Acid Level 2.9 mmol/L (0.4-2.0) Chloride Level 114 MEQ/L (98-107) Estimat Glomerular Filtration 73 ML/MIN (>89) 88 ML/MIN (>89) Rate Red Cell Distribution Width 17.4 % (11.6-17.2) Platelet Count 110 TH/MM3 108 TH/MM3 (150-450) (150-450) Red Blood Count 3.93 MIL/MM3 (4.00-5.30) Blood Urea Nitrogen 5 MG/DL (7-18) Calcium Level 8.1 MG/DL (8.5-10.1) Imaging Last Impressions Chest X-Ray 04/17/16 0600 Signed Impressions: Service Date/Time: Sunday, April 17, 2016 03:15 - CONCLUSION: Clear lungs. Nilay Nieves Jr., MD Head CT 04/16/16 0000 Signed Impressions: Service Date/Time: Sunday, April 17, 2016 00:48 - CONCLUSION: 1. No acute intracranial abnormality. 2. Chronic paranasal sinus disease. Nilay Nieves Jr., MD PE at Discharge GENERAL: This is a well-nourished, well-developed patient, in no apparent distress. CARDIOVASCULAR: Regular rate and rhythm RESPIRATORY: Clear to auscultation. Breath sounds equal bilaterally. No wheezes , rales, or rhonchi. GASTROINTESTINAL: Abdomen soft, non-tender, nondistended. Normal active bowel sounds MUSCULOSKELETAL: Extremities without clubbing, cyanosis, or edema. NEURO: Alert & Oriented x4 to person, place, time, situation. Moves all ext x4 Hospital Course 45-year-old white female was admitted for drug overdose and toxic encephalopathy requiring intubation and mechanical ventilation. She was admitted to intensive care unit on adult daycare coordinator service. She was also found to the klebsiella urinary tract infection and responded well to antibiotics. In addition she had early aspiration pneumonitis which responded to antibiotics. Supportive care was given in the intensive care unit. She was extubated on April 18 and at this time has gained maximum benefit from hospitalization and we discharged her home with outpatient follow-up. She was counseled on risk of drug abuse and consequences of with continued drug abuse. Pt Condition on Discharge: Good Discharge Disposition: Discharge Home Discharge Time: <= 30 minutes Discharge Instructions DIET: Follow Instructions for: As Tolerated, No Restrictions Activities you can perform: Regular-No Restrictions Follow up Referrals: PCP Follow-up - 1 Week New Medications: Ciprofloxacin (Ciprofloxacin) 500 Mg Tab 500 MG PO BID Infection #10 Ref 0 TAB Dora Hilario MD Apr 18, 2016 20:01
[2016-04-18] MEDS ORDERED: CIPROFLOXACIN 500 MG TAB PO SCH (21:00)
[2016-04-18] MEDS ORDERED: REMOVE OLD NICODERM (NICOTINE) PATCH TD SCH (23:00)
== END 2016-04-18 22:45 | disposition home or self-care (01) | DRG 917 ==
LOC: NEPC 17:42 → NEDA 18:39 → EDBD 18:39 → HIMW 04-17 01:00
PROVIDERS: ADMIT Family Medicine; ATTEND Family Medicine
PROC: 0T9B70Z Drainage of Bladder with Drainage Device, Via Natural or Artificial Opening (ICD-10-PCS; principal; 2016-04-16)
PROC: 5A1935Z Respiratory Ventilation, Less than 24 Consecutive Hours (ICD-10-PCS; 2016-04-16)
PROC: 0WHP33Z Insertion of Infusion Device into Gastrointestinal Tract, Percutaneous Approach (ICD-10-PCS; 2016-04-16)
PROC: 0BH17EZ Insertion of Endotracheal Airway into Trachea, Via Natural or Artificial Opening (ICD-10-PCS; 2016-04-16)
DX: T65.891A Toxic effect of other specified substances, accidental (unintentional), initial encounter (principal); G92 Toxic encephalopathy; R57.1 Hypovolemic shock; J69.0 Pneumonitis due to inhalation of food and vomit; J96.01 Acute respiratory failure with hypoxia; J96.02 Acute respiratory failure with hypercapnia; E44.1 Mild protein-calorie malnutrition; M62.82 Rhabdomyolysis; E87.2 Acidosis; N39.0 Urinary tract infection, site not specified; Z72.0 Tobacco use; F10.10 Alcohol abuse, uncomplicated; E87.5 Hyperkalemia; R73.9 Hyperglycemia, unspecified; B96.1 Klebsiella pneumoniae [K. pneumoniae] as the cause of diseases classified elsewhere
CPT/HCPCS: 31500; 36600; 51702; 70450; 71010; 80048; 80053; 80307; 80320; 80329; 81001; 82550; 82805; 82948; 83605; 84132; 84703; 85025; 85027; 87040; 87077; 87086; 87186; 87641; 93005; 94002; 94003; 94150; 94640; 94664; 94667; 94668; 96365; 99292; C9113; C9399; G0480; J0330; J1644; J1815; J7030; J7120